=== PATIENT | female | born 1995 | race African-American/Black ===

== ENCOUNTER 2016-11-25 18:10 | Emergency (ER) | payer MEDICAID ==
[~2016-11-25] VITALS: Ht 154.9 cm; Wt 45.0 kg
[~2016-11-25 18:10] MED LIST: FLAG250T PO; PANT20 PO; ZOFR4TAB3 SL
[2016-11-25 18:11] VITALS: BP 120/78; PULSE 108; RESP 20; TEMP 99.1; O2SAT 99
[2016-11-25] MEDS ORDERED: BACT800T5 PO (20:39)
[2016-11-25] MEDS ORDERED: HYDR-3533 PO ×2 (20:39→20:53)
[2016-11-25] MEDS ORDERED: SULFAMETHOXAZOLE-TRIMETHOPRIM DS 800-160 MG TAB PO ONE (20:45)
[2016-11-25] MEDS ORDERED: ACETAMINOPHEN/HYDROcodone 325 MG/5 MG TAB PO ONE (20:45)
--- NOTE | 2016-11-25 20:50 | PD ---
HPI Chief Complaint: Skin Problem Time Seen by Provider: 20:39 Travel History International Travel<30 days: No Contact w/Intl Traveler<30days: No Traveled to known affect area: No History of Present Illness HPI 21-year-old black female presents to emergency Department with complaints of swelling to her right labia majora over the past several days. She states that she has had "hair bumps" in the past. She denies any fever or chills. She states the pain is moderate. Worse with palpation. No palliative activity. She denies any vaginal complaints. No urinary complains. No fever chills. PFSH Past Medical History Medical History: Denies Significant Hx Diminished Hearing: No Immunizations Current: Yes Tetanus Vaccination: < 5 Years ?: Not LMP: 11/23/16 : 1 Past Surgical History Narrative Surgical Social History Alcohol Use: No Tobacco Use: No Substance Use: No Allergies-Medications (Allergen,Severity, Reaction): Coded Allergies: No Known Allergies (Unverified , 01/19/16) Reported Meds & Prescriptions Reported Meds & Active Scripts Active Lortab (Hydrocodone-Acetaminophen) 5-325 Mg Tab 1 Tab PO Q8HR PRN Bactrim DS (Sulfamethoxazole-Trimethoprim) 800-160 Mg Tab 1 Tab PO BID Review of Systems Except as stated in HPI: all other systems reviewed are Neg Physical Exam Narrative GENERAL: This is a well-nourished, well-developed patient, in no apparent distress. Patient's examined in the presence of the nurse. SKIN: Patient has a 2 x 2 centimeter area of erythema, edema and fluctuance to the right labia majora., ecchymoses or lesions. Warm and dry. HEAD: Atraumatic. Normocephalic. EYES: PERRL, EOMI, no discharge or injection. No scleral icterus. EARS: Clear NOSE: Nasal turbinates appear normal. THROAT: Mucosa pink and moist. Airway patent. NECK: Trachea midline. supple, moves head freely. LUNGS: Clear to auscultation. CV: Regular in rhythm. ABDOMEN: Soft nontender. EXT: No clubbing cyanosis or edema. Data Data Last Documented VS Vital Signs Date Time Temp Pulse Resp B/P Pulse Ox O2 Delivery O2 Flow Rate FiO2 11/25/16 20:31 18 11/25/16 18:11 99.1 20 120/78 99 Room Air Orders Acetamin-Hydrocod 325-5 Mg (Rudd 5-325 (11/25/16 20:45) Sulfamet-Trimeth Ds 800-160 Mg (Bactrim (11/25/16 20:45) MDM Medical Decision Making Medical Screen Exam Complete: Yes Emergency Medical Condition: Yes Medical Record Reviewed: Yes Differential Diagnosis MDM: High Differential diagnoses: Abscess, folliculitis, cellulitis, lymphangitis, abrasion, contact dermatitis Narrative Course Patient's given Lortab 5 mg and Bactrim DS by mouth. An incision and drainage has been performed. This is right labia majora abscess Procedures Procedure Narrative I&D abscess: After the risks and benefits were discussed the following procedure was performed. The skin is prepped and draped in the usual sterile fashion using Betadine. The abscess is anesthetized with 1% lidocaine. After adequate anesthesia, an 11 blade scalpel is used to make a 1.5 centimeter central incision. Perulant material is expressed. The abscess cavity is decompressed. A clean dressing is applied. The patient tolerated the procedure well. There was no complications. Follow-up instructions were given to the patient. Diagnosis Primary Impression: left labia majora abscess Patient Instructions: Narcotic given in the ED, General Instructions Additional Instructions: Rest. Elevation. keep clean and dry. Warm compresses. Sitz baths 3 times daily. Daily wound care with soap, water and Neosporin. Three Advil every 6 hours. Septra DS, and Lortab. Follow-up with a primary care doctor in one week. Return to the ER for any problems. Med/Other Pt SpecificInfo: Prescription(s) given Scripts Hydrocodone-Acetaminophen (Lortab)5-325 Mg Tab1 Tab PO Q8HR PRN (PAIN) #12 TAB Prov:Arun Lao MD 11/25/16 Sulfamethoxazole-Trimethoprim (Bactrim DS)800-160 Mg Tab1 Tab PO BID #20 TAB Prov:Sarah Alvarez MD 11/25/16 Disposition: 01 DISCHARGE HOME Condition: Stable Brent Woodard Nov 25, 2016 20:50
== END 2016-11-25 21:06 | disposition home or self-care (01) ==
LOC: NEPK 18:10
DX: N76.4 Abscess of vulva (principal)
CPT/HCPCS: 10060